=== PATIENT | female | born 1985 | race Caucasian/White ===

== ENCOUNTER 2025-08-11 07:59 | Outpatient (CLI) | payer BC, SELFPAY ==
--- OUTSIDE RECORDS SUMMARY | 2024-03-21 04:00 | XMS_ITS ---
Author Organization [facility] Address [address] [place] [address] Care Team Providers Care Flash Welder Name Role Phone Dr. Naga Frazier Primary Care Provider [phone] Migration, Provider Unavailable Unavailable Results Component Value Reference Range Notes Cortisol Reviewed date:03/28/2024 12:00:00 AM Interpretation: Performing Lab: Notes/Report: Cortisol 18.1 mcg/dL REASON FOR VISIT EMR-[facility] Encounters Encounter Location Date Provider Diagnosis [address] [address] 03/21/2024 Provider Migration Generalized hyperhidrosis R61 Assessments Encounter Date Diagnosis (ICD Code) Assessment Notes Treatment Notes Treatment Clinical Notes Section Notes 03/21/2024 Generalized hyperhidrosis (ICD-10 - R61) Plan Of Treatment No Information Progress Notes * Ivonne CRAIGaDOB: [birth year] (39 yo F)Acc No.[id number]:03/21/2024 Patient: Brigid Bowser Provider: Timothy richter Migration :1985 A ge:38 Y S ex:Female Date:03/21/2024 Phone: Address:[address] [facility] Pcp:Dr. Naga Frazier Subjective: * Chief Complaints: * E MR-Timothy Objective: Past Vitals:* 09/10/2023 BP: 120/78 mm Hg, HR: 90 /mi n, Oxygen sat %: 98 %, Wt: 150.00 lbs, Wt-k.04 kg * 06/13/2023 BP: 104/66 mm Hg, HR: 78 /mi n, Oxygen sat %: 97 %, Wt: 156.59 lbs, Wt-k.03 kg Assessment: * Assessment: 1. G eneralized hyperhidrosis - R61 S pecify :Src Diagnosis Name: Excessive sweating Plan: * Labs: * L ab: Cortisol Value Reference Range C ortisol 18.1 mcg/dL * (03/26/2024 03:39 PM) 8 am c ortisol levels ,Cortisol: _ C ortisol Reference Range: _ B efore 10:00 A.M. 6.7 - 22.6 mcg/dL _ A fter 5:00 P.M. <10.0 mcg/dL _ * Electronic signature of Prov ider Migration on 08/11/2025 at 08:16 AM CDT Sign off status: Pending * Provider: Timothy richter Migration Date: 0 03/21/2024 Generated for Aris hou/Hector/Jam on: 1 08:16 AM CDT
--- OUTSIDE RECORDS SUMMARY | 2024-03-26 04:00 | XMS_ITS ---
Author Organization [facility] Address [address] [place] [address] Care Team Providers Care Gas Engine Repairer Name Role Phone Dr. Naga Frazier Primary Care Provider [phone] Migration, Provider Unavailable Unavailable REASON FOR VISIT EMR-Timothy Encounters Encounter Location Date Provider Diagnosis [facility] [address] [place] [address] 03/26/2024 Provider Migration Localized swelling, mass and lump, left upper limb R22.32 Assessments Encounter Date Diagnosis (ICD Code) Assessment Notes Treatment Notes Treatment Clinical Notes Section Notes 03/26/2024 Localized swelling, mass and lump, left upper limb (ICD-10 - R22.32) Plan Of Treatment No Information Progress Notes * Ivonne CRAIGaDOB: [birth year] (39 yo F)Acc No.[id number]:03/26/2024 Patient: Brigid Bowser Provider: Timothy richter Migration :1985 A ge:38 Y S ex:Female Date:03/26/2024 Phone: Address:[address], [place] [facility] Pcp:Dr. Naga Frazier Subjective: * Chief Complaints: * E MR-Timothy Objective: Past Vitals:* 09/10/2023 BP: 120/78 mm Hg, HR: 90 /mi n, Oxygen sat %: 98 %, Wt: 150.00 lbs, Wt-k.04 kg * 06/13/2023 BP: 104/66 mm Hg, HR: 78 /mi n, Oxygen sat %: 97 %, Wt: 156.59 lbs, Wt-k.03 kg Assessment: * Assessment: 1. L ocalized swelling, mass and lump, left upper limb - R22.32 S pecify :Src Diagnosis Name: Mass of left axilla * Electronic signature of Prov ider Migration on 08/11/2025 at 08:16 AM CDT Sign off status: Pending * Provider: Timothy richter Migration Date: 0 03/26/2024 Generated for Aris hou/Hector/Jam on: 1 08:16 AM CDT
--- OUTSIDE RECORDS SUMMARY | 2024-07-10 04:00 | XMS_ITS ---
Author Organization [facility] Address [address] [place] [phone] Care Team Providers Care Bank Vault Clerk Name Role Phone Dr. Naga Frazier Primary Care Provider [phone] Migration, Provider Unavailable Unavailable REASON FOR VISIT EMR-Timothy Encounters Encounter Location Date Provider Diagnosis [facility] [address] [place] [address] 07/10/2024 Provider Migration Generalized hyperhidrosis R61 Assessments Encounter Date Diagnosis (ICD Code) Assessment Notes Treatment Notes Treatment Clinical Notes Section Notes 07/10/2024 Generalized hyperhidrosis (ICD-10 - R61) Plan Of Treatment No Information Progress Notes * Ivonne CRAIGaDOB: [birth year] (39 yo F)Acc No.[id number]:07/10/2024 Patient: Brigid Bowser Provider: Timothy richter Migration :1985 A ge:38 Y S ex:Female Date:07/10/2024 Phone: Address:[facility] [address], [facility] Pcp:Dr. Naga Frazier Subjective: * Chief Complaints: [...] S pecify :Src Diagnosis Name: Excessive sweating * Electronic signature of Prov ider Migration on 08/11/2025 at 08:16 AM CDT Sign off status: Pending * Provider: Timothy richter Migration Date: 0 07/10/2024 Generated for Aris hou/Hector/Jam on: 1 08:16 AM CDT
--- OUTSIDE RECORDS SUMMARY | 2024-09-27 04:00 | XMS_ITS ---
Author Organization [facility] Address [address] [place] [address] Care Team Providers Care Cream Ripener Name Role Phone Dr. Naga Frazier Primary Care Provider [phone] Migration, Provider Unavailable Unavailable REASON FOR VISIT EMR-Timothy Encounters Encounter Location Date Provider Diagnosis [facility] [address] [place] [address] 09/27/2024 Provider Migration Plan Of Treatment Medication Medication Name Sig Start Date Stop Date Notes Seasonique 0.15-0.03 &0.01 MG Tablet 1 Oral every day; Duration: 84 06/22/2021 06/22/2021 Rx Refill Request,discontinuerea son:Refilled *Reorder from [email or web address] for eRx and Interaction Alerts* clonazePAM 0.5 MG Tablet 1 Oral every 12 hours; Duration: 0 06/13/2023 06/13/2023 Rx Refill Request,discontinuerea son:Refilled,PRN Reason:for anxiety Amoxicillin 500 MG Capsule 1 Oral three times a day; Duration: 05/19/2021 05/28/2021 Phentermine HCl 37.5 MG Tablet 1 Oral every day; Duration: 12/13/2023 01/11/2024 Phentermine HCl 37.5 MG Capsule 1 Oral every day; Duration: 11/14/2023 12/13/2023 Citalopram Hydrobromide 20 MG Tablet 1 Oral every day; Duration: 09/03/2023 09/09/2023 Going to wean off to stop,discontinuereason :Discontinued Sertraline HCl 50 MG Tablet Oral; Duration: 0 02/08/2023 06/12/2023 ,discontinuere ason:Dis continued Jaimiess 0.15-0.03 &0.01 MG Tablet 1 Oral every day; Duration: 0 10/26/2023 10/26/2023 Citalopram Hydrobromide 10 MG Tablet 1 Oral every day; Duration: 0 05/14/2023 06/12/2023 increasing the dose,discontinuereason :Discontinued Aluminum Chloride 20 % SOLUTION, NON-ORAL 1 TOPICAL every evening; Duration: 09/10/2023 12/08/2023 *Pick strength-form from [employer] for eRX* busPIRone HCl 15 MG Tablet Oral; Duration: 0 11/27/2023 11/27/2023 Phentermine HCl 15 MG Capsule 1 Oral every day; Duration: 09/10/2023 10/09/2023 traZODone HCl 50 MG Tablet Oral; Duration: 06/17/2024 07/16/2024 Doxycycline Monohydrate 100 MG Capsule 1 Oral two times a day; Duration: 11/30/2022 12/09/2022 Progress Notes * BRIAN JazB: [birth year] (39 yo F)Acc No.[id number]:09/27/2024 Patient: Cirilo FRASERistina :1985 A ge:38 Y S ex:Female Phone: Address:[address] [place] [address] , [facility] [address] * Refills Stop Aluminum Chloride SOLUTION, NON-ORAL, 20 %, TOPICAL, 1, 1, every evening, 30 Stop Citalopram Hydrobromide Tablet, 10 MG, Oral, 30, 1, every day, 0 Stop clonazePAM Tablet, 0.5 MG, Oral, 20, 1, every 12 hours, 0 Stop Sertraline HCl Tablet, 50 MG, Oral, 90, 0 Stop Seasonique Tablet, 0.15-0.03 &0.01 MG, Oral, 84, 1, every day, 84 Stop Phentermine HCl Capsule, 37.5 MG, Oral, 28, 1, every day, 28 Stop Jaimiess Tablet, 0.15-0.03 &0.01 MG, Oral, 91, 1, every day, 0 Stop clonazePAM Tablet, 0.5 MG, Oral, 20, 1, every 12 hours, 0 Stop busPIRone HCl Tablet, 15 MG, Oral, 180, 1, three times a day, 0 Stop busPIRone HCl Tablet, 15 MG, Oral, 180, 0 Stop clonazePAM Tablet, 0.5 MG, Oral, 20, 1, every 12 hours, 0 Stop traZODone HCl Tablet, 50 MG, Oral, 90, 0 Stop busPIRone HCl Tablet, 15 MG, Oral, 1, three times a day, 0 Stop Sertraline HCl Tablet, 50 MG, Oral, 30, 1, every day, 30 Stop Jaimiess Tablet, 0.15-0.03 &0.01 MG, Oral, 91, 1, every day, 0 Stop busPIRone HCl Tablet, 15 MG, Oral, 180, 1, three times a day, 0 Stop Citalopram Hydrobromide Tablet, 20 MG, Oral, 30, 1, every day, 30 Stop Doxycycline Monohydrate Capsule, 100 MG, Oral, 20, 1, two times a day, 10 Stop Amoxicillin Capsule, 500 MG, Oral, 30, 1, three times a day, 10 Stop Phentermine HCl Capsule, 37.5 MG, Oral, 30, 1, every day, 30 Stop Phentermine HCl Tablet, 37.5 MG, Oral, 30, 1, every day, 30 Stop Citalopram Hydrobromide Tablet, 20 MG, Oral, 30, 1, every day, 30 Stop Sertraline HCl Tablet, 50 MG, Oral, 90, 1, every day, 0 Stop Jaimiess Tablet, 0.15-0.03 &0.01 MG, Oral, 91, 1, every day, 0 Stop Jaimiess Tablet, 0.15-0.03 &0.01 MG, Oral, 91, 1, every day, 0 Stop busPIRone HCl Tablet, 15 MG, Oral, 180, 1, three times a day, 0 Stop busPIRone HCl Tablet, 15 MG, Oral, 180, 0 Stop Citalopram Hydrobromide Tablet, 20 MG, Oral, 30, 1, every day, 30 Stop traZODone HCl Tablet, 50 MG, Oral, 90, 0 Stop traZODone HCl Tablet, 50 MG, Oral, 90, 0 Stop Jaimiess Tablet, 0.15-0.03 &0.01 MG, Oral, 91, 1, every day, 0 Stop traZODone HCl Tablet, 50 MG, Oral, 60, 30 Stop traZODone HCl Tablet, 50 MG, Oral, 90, 0 Stop Jaimiess Tablet, 0.15-0.03 &0.01 MG, Oral, 91, 1, every day, 0 Stop clonazePAM Tablet, 0.5 MG, Oral, 20, 1, every 12 hours, 0 Stop Sertraline HCl Tablet, 50 MG, Oral, 30, 1, every day, 90 Stop clonazePAM Tablet, 0.5 MG, Oral, 20, 1, every 12 hours, 20 Stop Phentermine HCl Capsule, 15 MG, Oral, 30, 1, every day, 30 Stop Sertraline HCl Tablet, 50 MG, Oral, 90, 1, every day, 0 Stop Jaimiess Tablet, 0.15-0.03 &0.01 MG, Oral, 91, 1, every day, 0 Stop clonazePAM Tablet, 0.5 MG, Oral, 20, 1, every 12 hours, 0 Stop traZODone HCl Tablet, 50 MG, Oral, as directed, 0 Subjective: * Chief Complaints: * E MR-Timothy Objective: Past Vitals:* 09/10/2023 BP: 120/78 mm Hg, HR: 90 /mi n, Oxygen sat %: 98 %, Wt: 150.00 lbs, Wt-k.04 kg * 06/13/2023 BP: 104/66 mm Hg, HR: 78 /mi n, Oxygen sat %: 97 %, Wt: 156.59 lbs, Wt-k.03 kg * * Date:
--- OUTSIDE RECORDS SUMMARY | 2024-09-28 04:00 | XMS_ITS ---
Author Organization [facility] Address [address] [place] [address] Care Team Providers Care Marketing Sales Representative Name Role Phone Dr. Naga Frazier Primary Care Provider [phone] Migration, Provider Unavailable Unavailable Allergies Allergen (clinical drug ingredient) Drug/Non Drug Allergy documented on EMR Reaction Allergy Type Onset Date Status bupropion Wellbutrin XL Unknown Drug Allergy 03/09/2021 Ac tive REASON FOR VISIT EMR-Timothy Medications Medication SIG (Take, Route, Frequency, Duration) Notes Start Date End Date Status clonazePAM 0.5 MG Tablet 1 Oral every 12 hours; Duration: 0 ,PRN Reason:for anxiety 10/30/2023 Active Encounters Encounter Location Date Provider Diagnosis [facility] [address] [place] [address] 09/28/2024 Provider Migration Plan Of Treatment No Information Progress Notes * Ivonne CRAIGaDOB: [birth year] (39 yo F)Acc No.[id number]:09/28/2024 Patient: Brigid FRASER :1985 A ge:38 Y S ex:Female Phone: Address:[address], [place], [address] Subjective: * Chief Complaints: * E MR-Timothy * Surgical History: section ,notes : 03/18/2020, 01/21/2008, 04/08/2006 _ * Medications: T akingclonazePAM 0.5 MG Tablet 1 Oral every 12 hours , Notes to Pharmacist: ,PRN Reason:for anxietyTaking clonazePAM 0.5 MG Tablet 1 Oral every 12 hours , Notes to Pharmacist: ,PRN Reason:for anxiety * Allergies: W ellbutrin XL: Allergy - Onset Date 03/09/2021 Objective: Past Vitals:* 09/10/2023 BP: 120/78 mm Hg, HR: 90 /mi n, Oxygen sat %: 98 %, Wt: 150.00 lbs, Wt-k.04 kg * 06/13/2023 BP: 104/66 mm Hg, HR: 78 /mi n, Oxygen sat %: 97 %, Wt: 156.59 lbs, Wt-k.03 kg * * Date:
--- NOTE | ~2025-08-11 | MM_ITS ---
EXAMINATION: MM screening tavares BI w lopez HISTORY: Screening TECHNIQUE: Craniocaudal and mediolateral oblique 3-D tomosynthesis images were obtained and synthetic 2-D images were generated. CAD analysis was submitted and interpreted. COMPARISON: No prior mammogram is available for comparison at this institution. BREAST PARENCHYMAL COMPOSITION: The breasts are heterogeneously dense, which may obscure small masses. FINDINGS: There is no evidence of suspicious mass, calcification, or architectural distortion to suggest malignancy. IMPRESSION: 1. No mammographic evidence of malignancy. Recommend routine screening mammography in one year. BI-RADS Category 2: Benign finding(s) Reviewed, dictated and finalized at location Q. IMPRESSION: 1. No mammographic evidence of malignancy. Recommend routine screening mammogra phy in one year. BI-RADS Category 2: Benign finding(s)
--- OUTSIDE RECORDS SUMMARY | 2025-08-11 08:16 | XMS_ITS | Clinical Summary ---
Author Organization [address] Address [address] [place] [address] Care Team Providers Care Back Shoe Operator Name Role Phone Unknown, Notinfile Primary Care Provider Unavail able Allergies Active Allergy Reactions Criticality Noted Date Comments Bupropion Swelling Medium 07/09/2023 Medications citalopram (CeleXA) 10 mg tablet Take 1 tablet (10 mg total) by mouth daily 05/14/2023 Active clonazePAM (KlonoPIN) 0.5 mg tablet 06/13/2023 Active Jaimiess 0.15 mg-30 mcg (84)/10 mcg (7) tablets,dose pack,3 month 05/03/2023 Active traZODone (DESYREL) 50 mg tablet 06/12/2023 Active Active Problems No known active problems Social History Tobacco Use Types Packs/Day Years Used Date Smoking Tobacco: Never Assessed Comments Unknown Sex and Gender Information Value Date Recorded Sex Assigned at Not on file Legal Sex Female 7:19 AM CDT Gender Identity Not on file Sexual Orientation Not on file Obstetrics History Last Filed Vital Signs Vital Sign Reading Time Taken Comments Blood Pressure 110/78 07/09/2023 2:28 PM CDT Pulse 74 07/09/2023 2:28 PM CDT Temperature 37.1 C (98.8 F) 07/09/2023 2:28 PM CDT Respiratory Rate 16 07/09/2023 2:28 PM CDT Oxygen Saturation 96% 07/09/2023 2:28 PM CDT Inhaled Oxygen Concentration - - Weight 63.5 kg (140 lb) 07/09/2023 2:28 PM CDT Height 160 cm (5' 3) 07/09/2023 2:28 PM CDT Body Mass Index 24.8 07/09/2023 2:28 PM CDT Plan of Treatment Health Maintenance Due Date Last Done Comments Breast Cancer Screening-Mammogram 1985 Cervical Cancer Screening 1985 Depression Screening 1985 Hepatitis C Screening 1984 Varicella Vaccines (1 of 2 - 13+ 2-dose series) 1997 Regular Well Visit/Exam 18-64 2002 HPV Vaccines (1 - 3-dose SCDM series) 2011 Covid-19 Vaccine ( - 2024- season) 2025 10/26/2021, 01/17/2021, 12/20/2020 Influenza Vaccine (#1) 2025 10/26/2021, 2018 DTaP/Tdap/Td Vaccine (10 - Td or Tdap) 02/25/2030 02/26/2020, 03/13/2019, 12/29/2014, Additional history exists Hepatitis B Screening Completed 07/24/2012, 012 Pneumococcal vaccine <65 Aged Out No longer eligible based on patient's age to complete this [place] [address] [place] [id number] [employer] OOS BLUE ACCESS OOS Care Teams Back Shoe Operator Relationship Specialty Start Date End Date Unknown, Notinfile PCP - General 07/09/23
--- OUTSIDE RECORDS SUMMARY | 2025-08-11 08:16 | XMS_ITS | Patient Health Record ---
Author Organization [facility] Address [address] [place] [address] Care Team Providers Care Branch Banker Name Role Phone Dr. Naga Frazier Primary Care Provider [phone] Felicitas Hale Unavailable [phone] Migration, Provider Unavailable Unavailable Reason For Referral No Information Medications Medication SIG (Take, Route, Frequency, Duration) Notes Start Date End Date Status clonazePAM 0.5 MG Tablet 1 Oral every 12 hours; Duration: 0 ,PRN Reason:for anxiety 10/30/2023 Active Jaimiess 0.15-0.03 &0.01 MG Tablet TAKE 1 TABLET DAILY Activ e Problems Problem Type SNOMED Code ICD Code Onset Dates Problem Status W/U Status Risk Notes Problem Moderate major depression, single episode (65872588) Major depressive disorder, single episode, moderate (F32.1) 018 Problem resolved confirmed Problem Administrative reason for encounter (833810870) Encounter for other administrative examinations (Z02.89) 019 Problem resolved confirmed Problem Pre-employment screening (772444725) Encounter for pre-employment examination (Z02.1) 019 Problem resolved confirmed Problem Child health medical examination (080233155) Encounter for routine child health examination without abnormal findings (Z00.129) 019 Problem resolved confirmed Problem Adult health examination (172337910) Encounter for general adult medical examination without abnormal findings (Z00.00) 017 Problem resolved confirmed Problem Restless legs syndrome (93637052) Restless legs syndrome (G25.81) 017 Problem resolved confirmed Problem Psychophysiologic insomnia (225727112) Other insomnia not due to a substance or known physiological condition (F51.09) 018 Problem resolved confirmed Problem Mild major depression, single episode (35770664) Major depressive disorder, single episode, mild (F32.0) 018 Problem resolved confirmed Problem General examination of patient (302916087) Routine general medical examination at health care facility (V70.0) 017 Problem resolved confirmed Problem Transient insomnia (303501267) Transient disorder of initiating or maintaining sleep (307.41) 018 Problem resolved confirmed Problem Extrapyramidal movements (798044813) 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) 017 Problem resolved confirmed Problem Lyme disease (09972845) Lyme disease (088.81) Problem resolved confirmed Problem Lyme disease (10399308) Lyme disease, unspecified (A69.20) 016 Inactive confirmed Problem Obsessive-compulsive disorder (021827708) Obsessive-compul sive disorder, unspecified (F42.9) Active confirmed Problem Dietary management surveillance (877224146) Dietary counseling and surveillance (Z71.3) Active confirmed Problem Problem, abnormal examination (71412072) Encounter for general adult medical examination with abnormal findings (Z00.01) Active confirmed Problem Generalized hyperhidrosis (995483705) Generalized hyperhidrosis (R61) 023 Active confirmed Problem Fatigue (88193225) Other fatigue (R53.83) Active confirmed Problem Flushing (29928275) Flushing (R23.2) 11/30 023 Active confirmed Problem Localized swelling, mass and lump, left upper limb (R22.32) 024 Active confirmed Problem Disorder of pigmentation (084992479) Disorder of pigmentation, unspecified (L81.9) Active confirmed Problem Acute sinusitis (58633413) Acute sinusitis, unspecified (J01.90) Active confirmed Problem Insomnia (518449056) Insomnia, unspecified (G47.00) Active confirmed Problem Generalized anxiety disorder (36167877) Generalized anxiety disorder (F41.1) 05/10/2 021 Active confirmed Problem Major depression, single episode (44670598) Major depressive disorder, single episode, unspecified (F32.9) 023 Active confirmed Problem Depressive disorder (52166184) Depressive disorder, not elsewhere classified (311) 016 Active confirmed Problem Generalized anxiety disorder (47313331) Generalized anxiety disorder (300.02) 018 Active confirmed Encounters Encounter Location Date Provider Diagnosis [address] [address] 09/27/2024 Provider Migration [address] [address] 09/28/2024 Provider Migration Plan Of Treatment No Information Insurance Providers Payer Name Payer Address Payer Phone Subscriber Number Group Number Insured Name Patient Relationship to Insured Coverage Start Date Coverage End Date [place] [place] [address] [id number] Brigid Craig Self - patient is the insured 1 Medical (General) History Surgical History Surgery Date(Month/Year) section ,notes : 03/18/2020, 12/28, 04/08/2006 _
== END 2025-08-11 08:00 | disposition home or self-care (01) ==
LOC: ANHFOHIMG 08:04
PROVIDERS: PCP Pediatrics; Visit Provider Obstetrics & Gynecology
DX: Z12.31 Encounter for screening mammogram for malignant neoplasm of breast (principal)
CPT/HCPCS: 77063; 77067